=== PATIENT | male | born 1995 | race Caucasian/White ===

== ENCOUNTER 2017-02-09 01:48 | Emergency (ER) | payer OTHER ==
[2017-02-09] MEDS ORDERED: KETOROLAC 30 MG/ML 1 ML VIAL IVP STA (02:17)
[2017-02-09] MEDS ORDERED: ORPHENADRINE 30 MG/ML 2 ML VIAL IM STA (02:17)
--- NOTE | 2017-02-09 02:21 | ED ---
Back Pain HPI - General Chief Complaint: Back Pain/Injury Stated Complaint: back pain Time Seen by Provider: 02/09/17 02:07 Source: patient, family, RN notes reviewed Limitations: no limitations - History of Present Illness Initial Comments: This a 22-year-old male presents emergency Department chief complaint of low back pain 5 weeks. Patient states that he had no known injury denies any trauma. Patient states pain is worse with movement and states it is better when he has his right leg bent up. Patient states it's in his right low back and radiates slightly into his leg. Denies any bowel, bladder incontinence or retention denies any saddle anesthesias or lower extremity paresthesias. Patient denies any dysuria, hematuria, constipation, diarrhea, abdominal pain, nausea, vomiting. Patient states that he has been taking some [id number] pain medication which it occasionally does help. Patient denies any other complaints at this time - Related Data Previous Rx's Medication Instructions Recorded Cyclobenzaprine [Flexeril] 10 mg PO TID PRN #15 tab 02/09/17 Ibuprofen [Motrin] 600 mg PO Q8HR PRN #30 tab 02/09/17 Allergies Allergy/AdvReac Type Severity Reaction Status Date / Time Penicillins Allergy Unknown Verified 02/09/17 01:56 Review of Systems ROS Statement: Those systems with pertinent positive or pertinent negative responses have been documented in the HPI. ROS Other: All systems not noted in ROS Statement are negative. Past Medical History Past Medical History: No Reported History History of Any Multi-Drug Resistant Organisms: None Reported Past Surgical History: No Surgical Hx Reported Past Psychological History: No Psychological Hx Reported Smoking Status: Current every day smoker Past Alcohol Use History: Occasional Past Drug Use History: None Reported General Exam Limitations: no limitations General appearance: alert, in no apparent distress Respiratory exam: Present: normal lung sounds bilaterally. Absent: respiratory distress, wheezes, rales, rhonchi, stridor Cardiovascular Exam: Present: regular rate, normal rhythm, normal heart sounds. Absent: systolic murmur, diastolic murmur, rubs, gallop, clicks GI/Abdominal exam: Present: soft, normal bowel sounds. Absent: distended, tenderness, guarding, rebound, rigid Extremities exam: Present: normal inspection, full ROM, normal capillary refill. Absent: tenderness, pedal edema, joint swelling, calf tenderness Back exam: Present: normal inspection, full ROM (Moderate discomfort), tenderness (Right low back), paraspinal tenderness, other (Pain with right straight leg raise). Absent: vertebral tenderness Neurological exam: Present: alert, oriented X3, CN II-XII intact, reflexes normal. Absent: motor sensory deficit Skin exam: Present: warm, dry, intact, normal color. Absent: rash Course Vital Signs 02/09/17 01:52 Temperature 97.8 F Pulse Rate 56 L Respiratory 16 Rate Blood Pressure 122/63 O2 Sat by Pulse 99 Oximetry Medical Decision Making - Medical Decision Making 22-year-old male presented for low back pain since that weeks. Patient no acute injury. This is reproducible pain worse with movement in other muscular skeletal nature. Patient will be referred to primary care physician or physical therapy return parameters were discussed. Disposition Clinical Impression: Mechanical back pain, Lumbar back pain Disposition: HOME SELF-CARE Condition: Stable Instructions: Acute Low Back Pain (ED) Additional Instructions: Please return to the Emergency Department if symptoms worsen or any other concerns. Prescriptions: Cyclobenzaprine [Flexeril] 10 mg PO TID PRN #15 tab PRN Reason: Muscle Spasm Ibuprofen [Motrin] 600 mg PO Q8HR PRN #30 tab PRN Reason: Pain Referrals: None,Stated [Primary Care Provider] - 1-2 days Korin Allred MD [REFERRING] - 1-2 days Time of Disposition: 03:20
[2017-02-09] MEDS ORDERED: KETOROLAC 60 MG/2 ML VIAL IM STA (02:25)
--- NOTE | 2017-02-09 03:15 | XR ---
EXAM: XR Lumbar Spine, 2 or 3 Views CLINICAL HISTORY: Reason: Pain TECHNIQUE: Frontal and lateral views of the lumbar spine. COMPARISON: No relevant prior studies available. FINDINGS: Vertebrae: Unremarkable. No acute fracture. Normal alignment. Disc spaces: No acute findings. No significant narrowing. Soft tissues: Unremarkable. IMPRESSION: Normal lumbar spine x-rays.
[2017-02-09 03:30] VITALS: BP 149/65; PULSE 52; RESP 18; TEMP 98.2
== END 2017-02-09 03:28 | disposition home or self-care (01) ==
LOC: EC 01:48
DX: M54.5 Low back pain (principal); F17.200 Nicotine dependence, unspecified, uncomplicated; Z53.8 Procedure and treatment not carried out for other reasons; Z88.0 Allergy status to penicillin
CPT/HCPCS: 72100; 99283; 96372 ×2; J2360; J1885

== ENCOUNTER 2020-01-06 20:12 | Emergency (ER) | payer OTHER ==
[2020-01-06 20:22] VITALS: BP 135/78; PULSE 106; RESP 18; TEMP 99.4
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
== END 2020-01-06 22:18 | disposition home or self-care (01) ==
LOC: EC 20:12
DX: F32.9 Major depressive disorder, single episode, unspecified (principal); Z88.0 Allergy status to penicillin
CPT/HCPCS: 82075; 99284

== ENCOUNTER 2021-02-25 16:15 | Inpatient (IN) | payer MEDICAID, OTHER ==
--- NOTE | 2021-02-25 16:42 | ED ---
General Adult HPI - General Chief complaint: Psychiatric Symptoms Stated complaint: EPS eval Time Seen by Provider: 02/25/21 16:25 Source: patient, EMS, RN notes reviewed, old records reviewed Mode of arrival: EMS Limitations: no limitations - History of Present Illness Initial comments: 26-year-old male presenting for psychiatric evaluation. Patient has been petitioned with suicidal thoughts. He denies a suicide attempt. He states been more depressed than usual and his girlfriend had called police. He denies any physical complaints. Denies alcohol or illicit drugs. - Related Data Previous Rx's Medication Instructions Recorded Cyclobenzaprine [Flexeril] 10 mg PO TID PRN #15 tab 02/09/17 Ibuprofen [Motrin] 600 mg PO Q8HR PRN #30 tab 02/09/17 Allergies Allergy/AdvReac Type Severity Reaction Status Date / Time Penicillins Allergy Unknown Verified 02/25/21 16:27 Review of Systems ROS Statement: Those systems with pertinent positive or pertinent negative responses have been documented in the HPI. ROS Other: All systems not noted in ROS Statement are negative. Past Medical History Past Medical History: No Reported History History of Any Multi-Drug Resistant Organisms: None Reported Past Surgical History: No Surgical Hx Reported Past Psychological History: No Psychological Hx Reported Smoking Status: Never smoker Past Alcohol Use History: Occasional Past Drug Use History: Marijuana General Exam Limitations: no limitations General appearance: alert, in no apparent distress Head exam: Present: atraumatic Eye exam: Present: normal appearance, PERRL ENT exam: Present: normal exam Neck exam: Present: normal inspection. Absent: tenderness, meningismus Respiratory exam: Present: normal lung sounds bilaterally. Absent: respiratory distress Cardiovascular Exam: Present: regular rate, normal rhythm GI/Abdominal exam: Present: soft. Absent: distended, tenderness, guarding Extremities exam: Present: normal inspection, normal capillary refill. Absent: pedal edema Neurological exam: Present: alert, oriented X3 Psychiatric exam: Present: depressed, flat affect, suicidal ideation Course Vital Signs 02/25/21 16:19 Temperature 99 F Pulse Rate 74 Respiratory 18 Rate Blood Pressure 124/85 O2 Sat by Pulse 98 Oximetry - Reevaluation(s) Reevaluation #1: 02/25/21 16:42 Patient cleared for EPS. Medical Decision Making - Medical Decision Making Patient evaluated by EPS and felt to require inpatient psychiatric evaluation and treatment. The patient will be admitted to this institution. I did complete a clinical certification on this patient. Disposition Clinical Impression: Depression, Suicidal ideation Disposition: ADMITTED IP TO THIS [facility] Condition: Stable Is patient prescribed a controlled substance at d/c from ED?: No Referrals: None,Stated [Primary Care Provider] - 1-2 days Decision to Admit Reason: Admit from EC Decision Date: 02/25/21 Decision Time: 18:28
[2021-02-25] MEDS ORDERED: LORazepam 2 MG/ML INJ IM STA (18:28)
[2021-02-25] MEDS ORDERED: LORazepam 2 MG/ML INJ IM PRN ×2 (18:38→21:28)
[2021-02-25] MEDS ORDERED: LORazepam 1 MG TAB PO STA (19:25)
[2021-02-25] MEDS ORDERED: MAG HYDROX/AL HYDROX/SIMETH 30 ML CUP PO PRN (20:22)
[2021-02-25] MEDS ORDERED: ACETAMINOPHEN TAB 325 MG TAB PO PRN (20:22)
[2021-02-25] MEDS ORDERED: MAGNESIUM HYDROXIDE 2,400 MG/10 ML CUP PO PRN (20:22)
[2021-02-25] MEDS ORDERED: HALOPERIDOL LACTATE 5 MG/ML 1 ML VIAL IM PRN (20:24)
[2021-02-25] MEDS ORDERED: haloperidoL 5 MG TAB PO PRN (20:24)
[2021-02-25] MEDS ORDERED: LORazepam 2 MG/ML INJ IM SCH (22:00)
[2021-02-26] MEDS: LORazepam 1 MG TAB PO PRN ×2 (00:48→12:15)
--- NOTE | 2021-02-26 03:26 | P.CONS ---
History of Present Illness - Reason for Consult Consult date: 02/26/21 - History of Present Illness The patient is a 36-year-old male with known PMH who had presented to the emergency room under police custody after suicidal ideation. The patient reportedly sent a picture to his girlfriend with a gun in his mouth. The patient states that he recently broke up with his girlfriend after she cheated on him and that it is causing a lot of stress for him. He denied any physical complaints. He denied taking any medications or substance use. Reports smoking 2-3 cigarettes daily but denied melena abuse. Denied chest pain, shortness of chills, cough, nausea, vomiting, abdominal pain, diarrhea. Review of systems: Pertinent positives and negatives as discussed in HPI, a complete review of systems was performed and all other systems are negative. Physical examination: General: non toxic, no distress, appears at stated age, normal weight Derm: no unusual rashes/lesions no unusual ecchymoses, warm, dry Head: atraumatic, normocephalic, symmetric Eyes: EOMI, no lid lag, anicteric sclera, pupils equal round reactive to light ENT: Nose and ears atraumatic, no thrush, no pharyngeal erythema Neck: No thyromegaly, no cervical lymphadenopathy, trachea midline, supple Mouth: no lip lesion, mucus membranes moist Cardiovascular: S1S2 reg, no murmur, positive posterior tibial pulse bilateral, no edema, capillary refill less than 2 seconds Lungs: CTA bilateral, no rhonchi, no rales , no accessory muscle use Abdominal: soft, nontender to palpation, no guarding, no appreciable organomegaly, normal bowel sounds Ext: no gross muscle atrophy, muscle strength 5 out of 5 in all 4 extremities grossly, no contractures, Neuro: CN II-XI grossly intact, light touch intact all 4 extremities, finger to nose within normal limits, Psych: Alert, oriented, appropriate affect Assessment/plan Depression with suicidal ideation -As per psychiatry Thank you for allowing us to participate in the care of this patient. We will follow peripherally. Do not hesitate to contact us with questions. Someone can be reached from the [facility] [place] hospitalist group at all hours of the day at [phone]. Past Medical History Past Medical History: No Reported History History of Any Multi-Drug Resistant Organisms: None Reported Past Surgical History: No Surgical Hx Reported Past Psychological History: No Psychological Hx Reported Smoking Status: Current every day smoker Past Alcohol Use History: None Reported Past Drug Use History: Marijuana Medications and Allergies Home Medications Medication Instructions Recorded Confirmed Type lamoTRIgine [LaMICtal] See Taper PO DAILY 02/25/21 02/25/21 History Allergies Allergy/AdvReac Type Severity Reaction Status Date / Time Penicillins Allergy Unknown Verified 02/25/21 19:19 Physical Exam Vitals: Vital Signs Temp Pulse Pulse Resp BP BP Pulse Ox 02/25/21 21:00 98.1 F 78 16 127/75 98 02/25/21 19:31 97.6 F 59 L 18 130/84 98 02/25/21 16:19 99 F 74 18 124/85 98 Intake and Output 02/25/21 02/25/21 02/26/21 14:59 22:59 06:59 Other: Weight 75.098 kg
[2021-02-26 08:13] LABS: Basophils # (A) 0.1 k/uL (0-0.2); Basophils % (A) 1 %; Eosinophils # (A) 0.1 k/uL (0-0.7); Eosinophils % (A) 1 %; HCT 41.9 % (39.0-53.0); HGB 14.4 gm/dL (13.0-17.5); Lymphocytes % (A) 23 %; MCH 31.7 pg (25.0-35.0); MCHC 34.4 g/dL (31.0-37.0); MCV 92.3 fL (80.0-100.0); Monocytes # (A) 0.8 k/uL (0-1.0); Monocytes % (A) 9 %; Neutrophils # (A) 5.7 k/uL (1.3-7.7); Neutrophils % (A) 64 %; Platelet Count 236 k/uL (150-450); RBC 4.54 m/uL (4.30-5.90); RDW 11.8 % (11.5-15.5); WBC 8.9 k/uL (3.8-10.6)
[2021-02-26] MEDS: NICOTINE 14MG/24HR PATCH TRANSDERM SCH (08:21)
[2021-02-26 09:24] LABS: ALT 18 U/L (4-49); AST 23 U/L (17-59); African American GFR (CKD) >90 (>60 ml/min/1.73 sqM); Albumin 4.8 g/dL (3.5-5.0); Alkaline Phosphatase 60 U/L (38-126); Anion Gap 13 mmol/L; Blood Urea Nitrogen 15 mg/dL (9-20); Calcium 10.6 mg/dL (8.4-10.2); Carbon Dioxide 24 mmol/L (22-30); Chloride 100 mmol/L (98-107); Glucose 92 mg/dL (74-99); Non-African American GFR(CKD) >90 (>60 ml/min/1.73 sqM); Potassium 3.9 mmol/L (3.5-5.1); Sodium 137 mmol/L (137-145); Total Bilirubin 0.6 mg/dL (0.2-1.3); Total Protein 7.9 g/dL (6.3-8.2)
--- NOTE | 2021-02-26 12:09 | P.HP ---
Psychiatric H&P - . H&P Date: 02/26/21 History & Physical: Allergies Allergy/AdvReac Type Severity Reaction Status Date / Time Penicillins Allergy Unknown Verified 02/25/21 19:19 Vital Signs Temp 98.1 F 02/26/21 06:27 Pulse 72 02/26/21 06:27 Resp 16 02/26/21 06:27 BP 132/87 02/26/21 06:27 Pulse Ox 98 02/25/21 21:00 Intake & Output 02/25/21 02/26/21 02/26/21 18:59 06:59 18:59 Weight 73.936 kg 75.098 kg Laboratory Last Values WBC 8.9 k/uL (3.8-10.6) 02/26/21 07:09 RBC 4.54 m/uL (4.30-5.90) 02/26/21 07:09 Hgb 14.4 gm/dL (13.0-17.5) 02/26/21 07:09 Hct 41.9 % (39.0-53.0) 02/26/21 07:09 MCV 92.3 fL (80.0-100.0) 02/26/21 07:09 MCH 31.7 pg (25.0-35.0) 02/26/21 07:09 MCHC 34.4 g/dL (31.0-37.0) 02/26/21 07:09 RDW 11.8 % (11.5-15.5) 02/26/21 07:09 Plt Count 236 k/uL (150-450) 02/26/21 07:09 MPV 8.0 02/26/21 07:09 Neutrophils % 64 % 02/26/21 07:09 Lymphocytes % 23 % 02/26/21 07:09 Monocytes % 9 % 02/26/21 07:09 Eosinophils % 1 % 02/26/21 07:09 Basophils % 1 % 02/26/21 07:09 Neutrophils # 5.7 k/uL (1.3-7.7) 02/26/21 07:09 Lymphocytes # 2.0 k/uL (1.0-4.8) 02/26/21 07:09 Monocytes # 0.8 k/uL (0-1.0) 02/26/21 07:09 Eosinophils # 0.1 k/uL (0-0.7) 02/26/21 07:09 Basophils # 0.1 k/uL (0-0.2) 02/26/21 07:09 Sodium 137 mmol/L (137-145) 02/26/21 07:09 Potassium 3.9 mmol/L (3.5-5.1) 02/26/21 07:09 Chloride 100 mmol/L (98-107) 02/26/21 07:09 Carbon Dioxide 24 mmol/L (22-30) 02/26/21 07:09 Anion Gap 13 mmol/L 02/26/21 07:09 BUN 15 mg/dL (9-20) 02/26/21 07:09 Creatinine 0.94 mg/dL (0.66-1.25) 02/26/21 07:09 Est GFR (CKD-EPI)AfAm >90 (>60 ml/min/1.73 sqM) 02/26/21 07:09 Est GFR (CKD-EPI)NonAf >90 (>60 ml/min/1.73 sqM) 02/26/21 07:09 Glucose 92 mg/dL (74-99) 02/26/21 07:09 Calcium 10.6 mg/dL (8.4-10.2) H 02/26/21 07:09 Total Bilirubin 0.6 mg/dL (0.2-1.3) 02/26/21 07:09 AST 23 U/L (17-59) 02/26/21 07:09 ALT 18 U/L (4-49) 02/26/21 07:09 Alkaline Phosphatase 60 U/L (38-126) 02/26/21 07:09 Total Protein 7.9 g/dL (6.3-8.2) 02/26/21 07:09 Albumin 4.8 g/dL (3.5-5.0) 02/26/21 07:09 TSH 5.050 mIU/L (0.465-4.680) H 02/26/21 07:09 Coronavirus (PCR) Not Detected (Not Detectd) 02/25/21 18:51 02/26/21 12:02 IDENTIFYING DATA: Patient is a 26-year-old male who is currently single has no kids and lives with his mother in a house and is unemployed. HPI: Patient presented to the hospital on petition for depression and suicidal thoughts filled out by a border police. According to the petition states that patient was endorsing suicidal thoughts and sent a picture of himself with a gun to his head to his girlfriend and has a history of cutting behavior. Patient was seen in the hallway and agreeable to speak to promotion writer. He was attempting to cooperate initially during conversation. He spoke about his girlfriend being "salty" about him breaking up with her a few days prior. He states that she called the police on him for no reason and is denying everything on the petition. He states that he does not have access to a gun and that she is lying about this. He states that he was just talking to his mother and then the police came to pick him up to the car to the hospital. He states that he does follow-up at [facility]. He claims that he is taking Lamictal at home. He claims that he is feeling anxious on the unit. He spoke about stressors in his life including taking care of his sister's 2 autistic children at home. He also states that his mother has some form of a neurological disorder that is preventing her from taking care of the kids. He states that the only thing that he detected his girlfriend was that "I feel suicidal when I'm in this relationship" however states that he is not feeling suicidal at this time and never takes it a picture of him with a gun. He accuses his girlfriend cheating on him. Patient denies any current suicidal or homicidal ideations intent or plan. At this time patient denies any auditory or visual hallucinations. Patient denies any flight of ideas racing thoughts and increased in goal directed behavior. Patient admits to using marijuana occasionally and cigarettes daily. PAST PSYCHIATRIC HISTORY: Patient states that he has history of bipolar disorder. Patient has previously on Lamictal and Seroquel in the past. He claims that he was admitted to [facility] 6 years ago he claims that he currently follows up at [facility] with a nurse practitioner and a therapist. Patient denies any history of suicide attempts in the past. PMH:denies ALLERGIES: as per EMR CHEMICAL DEPENDENCY HISTORY: as per HPI FAMILY PSYCHIATRIC/SUBSTANCE USE HISTORY: States that his mother has depression SOCIAL HISTORY: Patient was born and raised in [place]. He states that he completed high school. He claims that he was on probation for assault in the past. He states that he currently lives with his mother and his sister's 2 children. He is currently single has no kids of his own. They live in a house. He is unemployed.. MENTAL STATUS EXAM: General Appearance: Patient appears to have long hair, stated age is alert, somewhat directable and guarded. Patient appears to have poor hygiene and grooming. Behavior: Patient is seated without any agitated behavior. vague Speech: Patient's speech is fluent and nonpressured. Mood/Affect: Patient reports their mood is depressed and anxious, affect is congruent and constricted. Suicidality/Homicidality: Patient denies having any homicidal ideation intent or plan. Denies any suicidal ideations intent or plan Perceptions: Patient denies any visual hallucinations and denies any auditory hallucinations Though content/process: Minimizing his symptoms and need for hospitalization. Not endorsing any delusions or paranoia. Memory and concentration: AOX3, grossly intact for the purposes of this session. Can spell "WORLD" backwards Judgment and insight: poor STRENGTHS/WEAKNESSES: strength is that patient is resilient. Weakness is that patient has poor judgment and is impulsive INTELLECT: average IMPRESSIONS: Bipolar disorder, current episode depressed Cannabis use disorder Nicotine dependence PLAN: -Patient is admitted under voluntary status to [facility] for stabilization of psychiatric symptoms and safety. Patient has signed adult voluntary form and medication consent and is placed in patient's chart. -Medications : Will start patient on Lamictal 25 mg twice a day for mood stabilization/depression, trazodone 50 mg daily at bedtime for insomnia/mood. -Ativan and Haldol PRN for agitation/aggression -Patient was counselled on substance abuse and desired to cut back on use -Patient was informed of the risks, benefits and side effects of the medication and patient verbally consented to taking the medications. Patient signed med consent form and was placed in chart. -Internal Medicine consult to perform medical evaluation and physical. -NRT - nicotine patch -SW on board for discharge planning. Encourage patient to participate in groups to work on coping skills.
[2021-02-26] MEDS: DICYCLOMINE 10 MG CAP PO PRN (12:15)
[2021-02-26] MEDS: lamoTRIgine 25 MG TAB PO SCH ×2 (12:15→20:03)
[2021-02-26 14:53] VITALS: BMI 23.7
[2021-02-26 18:48] LABS: Chol/HDL Ratio 3.34 Ratio; LDL Cholesterol,Calculated 110.8 mg/dL (0.0-131.0)
[2021-02-26] MEDS: traZODone HCL 50 MG TAB PO SCH (20:03)
[2021-02-27] MEDS: LORazepam 1 MG TAB PO PRN ×2 (07:12→21:14)
[2021-02-27] MEDS: lamoTRIgine 25 MG TAB PO SCH ×2 (08:13→20:01)
[2021-02-27] MEDS: NICOTINE 14MG/24HR PATCH TRANSDERM SCH (08:13)
[2021-02-27] MEDS: DICYCLOMINE 10 MG CAP PO PRN ×2 (08:14→20:01)
--- NOTE | 2021-02-27 12:05 | P.PN ---
Progress Note - Text Progress Note Date: 02/27/21 Clinical Problems: Bipolar disorder current episode depressed, cannabis use disorder, tobacco use Interim history: I reviewed the medical record, interviewed the patient and discussed his treatment and treatment plan during team meeting. He continues to deny that he had threatened suicide or sent his ex-girlfriend a picture with a gun to his head. He alleged that he and his girlfriend had "broken up" and leaves that she apparently called the police when she learned that he is tending to date another woman. He talked about the emotional distress he has experience prior to and following the breakup with his ex-girlfriend. The health social work professor spoke with his mother who was surprised when the police arrived at their home. She denied that her son had been depressed or had been expressing suicidal thoughts. According to software sales representative from [facility] he is not been seen since December for the diagnoses of a bipolar disorder, PTSD and a borderline personality disorder. He completed an AMA that will on 03/01/2021. Medical consultation appreciated. TSH drawn admission was elevated at 5.050. He appears to be a suggestible person but admitted to experiencing chronic fatigue, cold intolerance and chronic constipation. Mental status exam: He presented as a tall, thin somewhat disheveled appearing young male with long hair. He made eye contact and attended to the interview. He had no prominent physical abnormalities. He had a distressed facial expression. He was alert and oriented to person, place and time. He had slight psychomotor retardation but no abnormal involuntary movements. Her speech was spontaneous with slight decrease in rhythm but normal volume. His affect was blunted but stable and appropriate. He denied suicidal ideation and wishes. He denied homicidal ideation. He denied feeling hopeless, helpless or worthless. He ruminated over the circumstances that led to this hospitalization. He did not express ideas reference, paranoid ideation, magical ideation or delusional thoughts. His thinking was abstract and associations were coherent, logical and goal directed. He denied hallucinations did not appear to be responding to internal stimuli. Assessment: He is less distressed her admission and continues to deny feelings depression or thoughts of and suicide. Plan: Continue inpatient admission to evaluate depressive symptoms and suicidal risk. Obtain free T4. Continue Lamictal 25 mg twice a day and titrated clinical response and tolerance. Trazodone 50 mg at bedtime for sleep. Bentyl 10 mg twice a day for gastritis. Ativan and/or Haldol when necessary for agitation or aggression. Haldol for smoking cessation. If he has no episodes of behavioral dyscontrol and expresses no suicidal thoughts during clinical counters and groups, consider discharge on 02/28/2021. Encouraged continued participation in therapeutic groups and activities. Evaluate clinical status response to treatment daily basis.
[2021-02-27] MEDS: traZODone HCL 50 MG TAB PO SCH (20:01)
[2021-02-28] MEDS ORDERED: diphenhydrAMINE 50 MG CAP PO STA (00:55)
[2021-02-28 06:42] VITALS: BP 130/61; PULSE 62; RESP 15; TEMP 97.9
[2021-02-28] MEDS: lamoTRIgine 25 MG TAB PO SCH (07:37)
[2021-02-28] MEDS: DICYCLOMINE 10 MG CAP PO PRN (07:37)
[2021-02-28] MEDS: NICOTINE 14MG/24HR PATCH TRANSDERM SCH (07:51)
--- NOTE | 2021-02-28 14:11 | P.DS ---
Providers Date of admission: 02/25/21 20:13 Attending physician: Yunior Campos MD Consults: 02/25/21 20:22 Consult Physician Routine Consulting Provider: Willie Physician Consult Reason/Comments: H&P and medical Do you want consulting provider notified?: Yes Primary care physician: Stated None - Discharge Diagnosis(es) (1) Suicidal ideation Status: Acute Priority: Low (2) Depression Status: Acute Priority: Medium (3) Cluster B personality disorder Status: Chronic Priority: Medium (4) Cannabis use disorder, mild, abuse Status: Chronic Priority: Medium (5) Tobacco use disorder Status: Chronic Priority: Medium Hospital Course: HISTORY: Jimenez is a 26-year-old single male brought to the ED by a police captain senior completed a petition. According to the petition Jimenez endorsed suicidal thoughts and said a picture of himself with a gun to his head to his exgirlfriend. He also has a history of cutting behavior. I admission and throughout this brief hospitalization he denied having suicidal thoughts or sending his girlfriend a picture as described above. He alleged that his exgirlfriend called the police "for no reason" other than she was jealous that he is dating another. He specifically denied feeling depressed or having thoughts of or suicide. He denied that he had attempted suicide. He has a history of a mental illness diagnosis of bipolar disorder. He is enrolled with [facility] and has been treated with Lamictal and Seroquel. He had one psychiatric hospitalization 6 years ago at [facility]. HOSPITAL COURSE: We admitted him to the psychiatric unit under the care of Dr. Sarmiento. He provided a comprehensive biopsychosocial assessment. The quality assurance consultant motion picture scene builder completed initial physical exam and medical history and did not diagnosis of major medical condition. We'll resume and prescribed trazodone 50 mg at bedtime for sleep. He complained of gastritis for which we prescribed Bentyl 10 mg twice a day. His initial TSH was elevated at 5.050 but the free T4 was normal. He posed behavioral problem since had multiple episodes of behavioral dyscontrol. He had one outburst for which she received when necessary Ativan and Haldol. She learned he would not be discharge from the unit. Otherwise he participated actively in therapeutic groups and activities. MENTAL STATUS ON DISCHARGE: At the time of discharge she presented as a casually groomed young male with long hair. He made eye contact and attended to the interview. He had no prominent physical abnormalities. He had a distressed facial expression. He was alert and oriented to person, place and time. He had slight psychomotor retardation but no abnormal involuntary movements. Her speech was spontaneous with slight decrease in rhythm but normal volume. His affect was blunted but stable and appropriate. He denied suicidal ideation and wishes. He denied homicidal ideation. He denied feeling hopeless, helpless or worthless. He ruminated over the circumstances that led to this hospitalization. He did not express ideas reference, paranoid ideation, magical ideation or delusional thoughts. His thinking was abstract and associations were coherent, logical and goal directed. He denied hallucinations did not appear to be responding to internal stimuli. DISPOSITION: He was discharged to his prior address. He has a follow-up appointment at [facility] on 03/06/2021: 30 a.m. His discharge medications include Bentyl 10 mg by mouth before meals 3 times a day when necessary for abdominal distress and Lamictal 25 mg by mouth twice a day. Patient Condition at Discharge: Stable Plan - Discharge Summary Discharge Rx Participant: No New Discharge Prescriptions: New Dicyclomine [Bentyl] 10 mg PO AC-TID PRN cap PRN Reason: Abdominal cramps lamoTRIgine [LaMICtal] 25 mg PO BID #60 tab Discontinued lamoTRIgine [LaMICtal] See Taper PO DAILY Discharge Medication List Dicyclomine [Bentyl] 10 mg PO AC-TID PRN cap 02/28/21 [Rx] lamoTRIgine [LaMICtal] 25 mg PO BID #60 tab 02/28/21 [Rx] Follow up Appointment(s)/Referral(s): [facility] [Outside] - 03/06/21 11:30 am (03-06-21 @ 11:30 with Maricarmen Soliman 03-06-21 @ 1:[address] Nely Estrella ) [facility] [NON-STAFF] - 1 Week Patient Instructions/Handouts: How to Stop Smoking (DC), Bipolar Disorder (DC), Depression (DC), Post Traumatic Stress Disorder (DC), Help Prevent Suicide (DC), Borderline Personality Disorder (DC) Activity/Diet/Wound Care/Special Instructions: Activity and diet as tolerated. Avoid the use of street drugs and alcohol. Take all medications as prescribed. When you are in need of refills on your medications please contact your medical provider and/or outpatient psychiatrist to have this done. Please go to scheduled outpatient appointment for aftercare treatment. If symptoms return or become worse, call the crisis line at and/or go to the nearest emergency room for evaluation. Discharge Disposition: HOME SELF-CARE
== END 2021-02-28 12:47 | disposition home or self-care (01) | DRG 885 ==
LOC: EC 16:15 → 3MHU 20:13
PROVIDERS: ADMIT Psychiatry & Neurology Psychiatry; ATTEND Psychiatry & Neurology Psychiatry
DX: F31.30 Bipolar disorder, current episode depressed, mild or moderate severity, unspecified (principal); R45.851 Suicidal ideations; Z20.822 Contact with and (suspected) exposure to COVID-19; F12.10 Cannabis abuse, uncomplicated; F17.210 Nicotine dependence, cigarettes, uncomplicated; F60.89 Other specific personality disorders; K29.70 Gastritis, unspecified, without bleeding; Z79.899 Other long term (current) drug therapy; Z81.8 Family history of other mental and behavioral disorders
CPT/HCPCS: 80053; 80061; 82075; 83036; 84439; 84443; 85025; 87635; 99285